=== PATIENT | male | born 1955 | race Caucasian/White ===

== ENCOUNTER 2017-12-09 14:25 | Emergency (ER) | payer OTHER, SELFPAY ==
[2017-12-09 14:27] VITALS: BP 169/83; PULSE 79; RESP 18; TEMP 36.3; O2SAT 97; BMI 35.4
--- NOTE | 2017-12-09 15:50 | ED.DCSUM_ITS ---
- ER Visit Summary Date of Service: 12/09/17 Chief Complaint: [Laceration left small finger] History of Present Illness: The patient is a 62 M [presented to the emergency department complaint laceration to left small finger that occurred about an hour ago while patient was working on his lawnmower. Patient states that he was using a wrench when it slipped and he struck the lawnmower deck with his left small finger causing a laceration. Patient is right-hand dominant. Patient is up-to-date on tetanus. Physical Examination: [Left Hand-small finger -there are 2 lacerations side-by- side to the palmar aspect of the small finger total length of 4.5 cm traversing the area of the distal phalanx and middle phalanx. Patient has normal range of motion at the DIP and PIP joints. He is neurovascular intact. There is fat extruding from the wounds.] Test Results: None [Indicated] Emergency Department Course and Treatment: [Laceration repair-wound sterilely draped and prepped. Using 1% lidocaine a total of 8 cc used to perform a digital block with good anesthesia. Wound cleansed with Shur-Clens and irrigated with copious saline. Using 5-0 nylon a total 13 single interrupted sutures placed with good wound edge approximation.] Clean dressing was applied. Treatment Plan: [Suture removal in 10 days. Patient will be started empirically on Keflex for 7 days.] Disposition: [Discharged home in stable condition]. Patient advised to return if increasing pain, redness, swelling, or condition should worsen in any way. Impression: [Left small finger laceration 4.5 cm total length-simple repair] This note was generated with [employer] dictation software. It may contain incorrect words, spelling, and punctuation that were not noted in review of the chart prior to signing ED Disposition - Plan for ED Patient: Chief Complaint: Laceration Referrals: Rudy Alex MD [Primary Care Provider] -
--- NOTE | 2017-12-09 15:50 | ED.DEP ---
ED Disposition - Plan for ED Patient: Chief Complaint: Laceration Instructions: ED Laceration Hand Prescriptions: Cephalexin [Keflex] 500 mg PO Q8 #21 cap Referrals: Rudy Alex MD [Primary Care Provider] - 10 Day for suture removal
[2017-12-09 16:10] VITALS: BP 164/94; PULSE 71; RESP 16; O2SAT 98
== END 2017-12-09 16:11 | disposition home or self-care (01) ==
PROVIDERS: Emergency Provider Emergency Medicine; Family Provider Family Medicine; PCP Family Medicine
DX: S61.217A Laceration without foreign body of left little finger without damage to nail, initial encounter (principal); Z72.0 Tobacco use; W26.8XXA Contact with other sharp object(s), not elsewhere classified, initial encounter; Y93.89 Activity, other specified; Y92.008 Other place in unspecified non-institutional (private) residence as the place of occurrence of the external cause; Y99.8 Other external cause status
CPT/HCPCS: 12002; 99283